=== PATIENT | male | born 1935 | race Caucasian/White ===

== ENCOUNTER 2018-02-10 13:58 | Emergency (ER) | payer MEDICARE, SELFPAY ==
[2018-02-10 13:59] VITALS: BP 134/101; PULSE 68; RESP 18; TEMP 36.6; O2SAT 97; BMI 21.4
[2018-02-10 14:18] VITALS: BP 170/95; PULSE 64; RESP 18
--- NOTE | 2018-02-10 14:43 | ED.VISSUMM ---
- ER Visit Summary Date of Service: 02/10/18 Chief Complaint: Urinary retention, catheter not draining History of Present Illness: The patient is a 82 M who states his catheter has not drained since last night. He has a suprapubic catheter in place due to chronic incontinence. It has been there for about a year and a half. It was changed about 2-1/2 weeks ago. He is having some suprapubic pain with this. Physical Examination: Vital signs reviewed. HEENT exam unremarkable. Heart is regular rate and rhythm. Lungs clear to auscultation. Abdomen is soft with suprapubic tenderness to palpation. The suprapubic catheter site appears clean and without erythema. The rest the exam is unremarkable Test Results: Urine culture is pending Emergency Department Course and Treatment: The patient's suprapubic was changed by myself. He had 1 L of urine returned with some sediment. Patient feels much better. I will start him on Bactrim and send a urine culture. He will follow-up with his primary care physician and urologist Treatment Plan: [] Disposition: Discharge Impression: Urinary retention, Tyler catheter change This note was generated with [employer] dictation software. It may contain incorrect words, spelling, and punctuation that were not noted in review of the chart prior to signing ED Disposition - Plan for ED Patient: Chief Complaint: Complaint Referrals: Marian Muller MD [Primary Care Provider] -
--- NOTE | 2018-02-10 14:45 | ED.DEP ---
ED Disposition - Plan for ED Patient: Disposition: Home or Assisted Living Chief Complaint: Complaint Instructions: ED Retention Urinary Male Prescriptions: Smz/Tmp Ds [Bactrim Ds] 1 tab PO BID #6 tab Referrals: Marian Muller MD [Primary Care Provider] -
[2018-02-10 14:50] VITALS: BP 150/76; PULSE 87; RESP 16
--- OUTSIDE RECORDS SUMMARY | 2018-02-10 15:00 | XMS RPT_ITS ---
:1935 Author Organization [facility] Care Team Providers Name Role Phone CARUSO, TOÑA (PA) Referring Unavailable CARUSO, TOÑA (PA) Referring Unavailable CARUSO, TOÑA (PA) Attending Unavailable CARUSO, TOÑA (PA) Referring Unavailable CARUSO, TOÑA (PA) Attending Unavailable CARUSO, TOÑA (PA) Referring Unavailable CARUSO, TOÑA (PA) Attending Unavailable CARUSO, TOÑA (PA) Referring Unavailable CARUSO, TOÑA (PA) Attending Unavailable CARUSO, TOÑA (PA) Referring Unavailable CARUSO, TOÑA (PA) Referring Unavailable Mraian Muller Primary Care Unavailable Yemi Zaldivar Attending Unavailable PROBLEMS PROBLEMS DATE TYPE CONDITION / CODE ATTENDING STATUS SOURCE 03/15/2017 Active Unknown / NA Active [facility] UNK(Unknown) [facility] PROCEDURES PROCEDURES No Procedure Records FoundRESULTS RESULTS DISCHARGE INSTRUCTION Observed: 02/10/2018 Status: F Source: [place] 2:46 PM [facility] REPOSITORY [facility] [address] [place], [place] [address]Gicyoipir Ljacdjzddgz01/17/18 1445#: [id number] Acct: [id number]: LIZY HERNÁNDEZ Rep #: [id number]: 1935 82 From: Yemi Zaldivar MDPCP: Marian Muller MD Status: PRE ERED Disposition- Plan for ED Patient:Disposition: Home or Assisted LivingChief Complaint: ComplaintInstructions: ED Retention Urinary MalePrescriptions:Smz/Tmp Ds [Bactrim Ds] 1 tab PO BID #6 tabReferrals:Marian Muller MD [Primary Care Provider] -What to do if you have ProblemsFor any increased pain, shortness of breath, bleeding, nausea or vomiting, chest pain, or anyunexpected problems, contact your Primary Care Provider. Call [facility] ([phone])or report to the closest Emergency Room.Call 911 if necessary.02/10/18 1446 <Electronically signed by Yemi Zaldivar MD>Date Yemi Zaldivar MDCosigner Signature (If Indicated): Date CC: Marian Muller MD EMERGENCY DEPARTMENT Observed: 02/10/2018 Status: F Source: [place] SUMMARY 2:45 PM [facility] REPOSITORY [facility] [address] [place], [place] [address]Wizbibesc Department Wjnkxvu90/17/18 1443MR#: [id number] Acct: [id number]: LIZY HERNÁNDEZ Rep #: [id number]: 1935 82 From: Yemi Zaldivar MDPCP: Marian Muller MD Status: PRE ER- ER Visit SummaryDate of Service: 02/10/18Chief Complaint : Urinary retention, catheter not drainingHistory of Present Illness: The patient is a 82 M who states his catheter has not drained sincelast night. He has a suprapubic catheter in place due to chronic incontinence. It has beenthere for about a year and a half. It was changed about 2-1/2 weeks ago. He is having somesuprapubic pain with this.Physical Examination: Vital signs reviewed. HEENT exam unremarkable. Heart is regular rateand rhythm. Lungs clear to auscultation. Abdomen is soft with suprapubic tenderness topalpation. The suprapubic catheter site appears clean and without erythema. The rest the examis unremarkableTest Results: Urine culture is [facility]Emer[facility] Course and Treatment: The patient's suprapubic was changed by myself. Hehad 1 L of urine returned with some sediment. Patient feels much better. I will start him onBactrim and send a urine culture. He will follow-up with his primary care physician andurologistTreatment Plan: []Disposition: DischargeImpression: Urinary retention, Zamudio catheter changeThis note was generated with Moc[employer] dictation software. It may contain incorrect words,spelling, and punctuation that were not noted in review of the chart prior to signingED Disposition- Plan for ED Patient:Chief Complaint: ComplaintReferrals:Marian Muller MD [Primary Care Provider] -What to do if you have ProblemsFor any increased pain, shortness of breath, bleeding, nausea or vomiting, chest pain, or anyunexpected problems, contact your Primary Care Provider. Call [facility] ([phone])or report to the closest Emergency Room.Call 911 if necessary.02/10/18 1445 <Electronically signed by Yemi Zaldivar MD>Date Yemi Zaldivar MDCosigner Signature (If Indicated): Date CC: Marian Muller MD PROGRESS Observed: 11/29/2017 Status: COMPLETED Source: [place] 4:20 PM [facility] REPOSITORY O ID: [id number]: Patti Hdezice: (none) Author Type: (none)Type: Progress NotesFiled: 11/29/2017 4:23 PMNote Text:Suprapubic catheter change performed as ordered.A 18 hong konger zamudio catheter was replaced using sterile technique withoutcomplications.Balloon inflated with 10cc of sterile saline.Patient tolerated procedure well.Irrigation preformed to insure proper placement done easily with goodreturn.Patient to follow up in 2 months. Patient to call in the interim with anyproblems or concerns.Patti Tim Ma CNNURSE Observed: 11/29/2017 Status: COMPLETED Source: [place] 3:00 PM [facility] REPOSITORY Nurse Visit (UROLWS) ---------LIZY HERNÁNDEZ ([id number]) 1935 MDate Time Provider Department11/29/17 3:00 PM NURSE UROL [facility] UROLWS During your visit today, we recorded the following information about you:Patti Tim Ma 11/29/2017 4:23 PM SignedSuprapubic catheter change performed as ordered.A 18 hong konger zamudio catheter was replaced using sterile technique withoutcomplications.Balloon inflated with 10cc of sterile saline.Patient tolerated procedure well.Irrigation preformed to insure proper placement done easily with good return.Patient to follow up in 2 months. Patient to call in the interim with anyproblems or concerns.Patti Dean Provider: TOÑA CARUSO) [[id number]]Allergies As of Date: 2017(No Known Allergies)Date Reviewed: 11/29/2017Reviewed by: Patti Tim Ma - Fully AssessedReason for Visit: Tube Change-suprapubic [824]Primary Visit Diagnosis:Urinary retention [R33.9] Prescriptions as of 11/29/2017 Sig: URINARY BAG Leg bag to use with SP tube* MISCELLANEOUS MEDICAL SUPPLY * Daniela Louie Leg strap for * OXYCODONE- ACETAMINOPHEN 7.5 M* Take 1 tablet by mouth every * SULFAMETHOXAZOLE 800 MG-TRIME* Take 1 tablet by mouth twice *Problem List As Of Date 11/29/2017 Noted Resolved Retention of urine [R33.9] INVALID FOR* Benign nodular prostatic hyperplasia with lower*INVALID FOR* Renal failure [N19] INVALID FOR* Abnormal prostate exam [R39.89] INVALID FOR* 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 The area was prepped with betadine, and a new 18 Fr Zamudio wasinserted through the stoma site into the bladder. The balloon was inflatedwith 10 cc's of sterile saline. The catheter irrigated with 30ml sterilesaline with good return. LUIS DANIEL Urias in office for tube change.The pt tolerated the procedure well without complications. Follow up asdiscussed with SHYLA Black MA PROGRESS Observed: 08/09/2017 Status: COMPLETED Source: [place] 3:51 PM [facility] HNO ID: [id number]: Patti Shah: (none) Author Type: (none)Type: Progress NotesFiled: 09/06/2017 6:47 PMNote Text:Suprapubic catheter change performed as ordered.A 18 Greenlandic latex zamudio catheter was replaced using sterile techniquewithout complications.Balloon inflated with 10cc of sterile saline.Patient tolerated procedure well.Irrigation preformed to insure proper placement with 60ml sterile salinewith good return.Patient to follow up in 8 weeks. Patient to call in the interim with anyproblems or concerns.Toña Caruso MPAS, [place], SHYLA CNOV Observed: 08/09/2017 Status: COMPLETED Source: [place] 3:30 PM [facility] REPOSITORY Office Visit (UROLWS) ---------LIZY HERNÁNDEZ ([id number]) 1935 MDate Time Provider Ynzkhrmjxf87/14/17 3:30 PM TOÑA CARUSO) UROLWS During your visit today, we recorded the following information about you:Patti Tim Ma 08/09/2017 3:52 PM SignedSuprapubic catheter change performed as ordered.A 18 Greenlandic latex zamudio catheter was replaced using sterile technique withoutcomplications.Balloon inflated with 10cc of sterile saline.Patient tolerated procedure well.Irrigation preformed to insure proper placement with 60ml sterile saline withgood return.Patient to follow up in 8 weeks. Patient to call in the interim with anyproblems or concerns.STEPAN Black, [place], PA-CReferring Provider: TOÑA CARUSO) [[id number]]Allergies As of Date: 08/09/2017(No Known Allergies)Date Reviewed: Reviewed by: Patti Tim Ma - Fully AssessedReason for Visit: sp tube change [Other] yearly check [Other]Primary Visit Diagnosis:Urinary retention [R33.9]Order(s):SUPRAPUBIC TUBE CHANGE [9602213] Order #: [id number] as of 08/09/2017 Sig: URINARY BAG Leg bag to use with SP tube* MISCELLANEOUS MEDICAL SUPPLY * Daniela Louie Leg strap for * OXYCODONE-ACETAMINOPHEN 7.5 M* Take 1 tablet by mouth every * SULFAMETHOXAZOLE 800 MG-TRIME* Take 1 tablet by mouth twice *Problem List As Of Date 08/09/2017 Noted Resolved Retention of urine [R33.9] INVALID FOR* Benign nodular prostatic hyperplasia with lower*INVALID FOR* Renal failure [N19] INVALID FOR* Abnormal prostate exam [R39.89] INVALID FOR* 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] INVALID FOR* Pain of male genitalia [N50.89] INVALID FOR* Anemia [D64.9] INVALID FOR* CKD (chronic kidney disease) [N18.9] INVALID FOR* Status:Closed by TOÑA LARA on 09/06/17 PROGRESS Observed: 06/14/2017 Status: COMPLETED Source: [place] 4:24 PM [facility] [place] REPOSITORY HNO ID: [id number]: Nathan GARCIAervice: (none) Author Type: (none)Type: Progress NotesFiled: 06/14/2017 4:24 PMNote Text:Suprapubic catheter change performed as ordered.A 18 hong konger zamudio catheter was replaced using sterile technique withoutcomplications.Balloon inflated with 10cc of sterile saline.Patient tolerated procedure well.Irrigation preformed to insure proper placement done without complicationwith good return.?Patient to follow up in 6- 8 weeks. Patient to call in the interim withany problems or concerns CNOV Observed: 06/14/2017 Status: COMPLETED Source: [place] 4:00 PM [facility] REPOSITORY Office Visit (UROLWS) ---------LIZY HERNÁNDEZ ([id number]) 1935 [facility] Wfwakcunbo29/19/17 4:00 PM TOÑA CARUSO) UROLWS During your visit today, we recorded the following information about you:Nathan Keith LPN 06/14/2017 4:24 PM SignedSuprapubic catheter change performed as ordered.A 18 hong konger zamudio catheter was replaced using sterile technique withoutcomplications.Balloon inflated with 10cc of sterile saline.Patient tolerated procedure well.Irrigation preformed to insure proper placement done without complication withgood return.?Patient to follow up in 6-8 weeks. Patient to call in the interim with anyproblems or concernsJokristin Keith LPN 06/14/2017 4:24 PM SignedSuprapubic catheter change performed as ordered.A 18 hong konger zamudio catheter was replaced using sterile technique withoutcomplications.Balloon inflated with 10cc of sterile saline.Patient tolerated procedure well.Irrigation preformed to insure proper placement done without complication withgood return.?Patient to follow up in 6-8 weeks. Patient to call in the interim with anyproblems or concernsReferring Provider: TOÑA CARUSO) [[id number]]Allergies As of Date: 06/14/2017(No Known Allergies)Date Reviewed: 04/26/2017Reviewed by: Patti Tim Ma - Fully AssessedReason for Visit: Nurse Visit [792] Cmt: s/p cath changePrimary Visit Diagnosis:Retention of urine [R33.9]Prescriptions as of 06/14/2017 Sig: URINARY BAG Leg bag to use with SP tube* MISCELLANEOUS MEDICAL SUPPLY * Daniela Liban Leg strap for * OXYCODONE-ACETAMINOPHEN 7.5 M* Take 1 tablet by mouth every * SULFAMETHOXAZOLE 800 MG-TRIME* Take 1 tablet by mouth twice *Problem List As Of Date 06/14/2017 Noted Resolved Retention of urine [R33.9] INVALID FOR* Benign nodular prostatic hyperplasia with lower*INVALID FOR* Renal failure [N19] INVALID FOR* Abnormal prostate exam [R39.89] INVALID FOR* 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 Patient to call in the interim withany problems or concernsEncounter Number: [id number] Status:Closed by NATHAN KEITH LPN on 06/14/17 PROGRESS Observed: 04/26/2017 Status: COMPLETED Source: [place] 4:23 PM [facility] REPOSITORY [facility] ID: [id number]: Patti Tim MaService: (none) Author Type: (none)Type: Progress NotesFiled: 04/26/2017 4:26 PMNote Text:Suprapubic catheter change performed as ordered.A 18 hong konger zamudio catheter was replaced using sterile technique withoutcomplications.Balloon inflated with 10cc of sterile saline.Patient tolerated procedure well.Irrigation preformed to insure proper placement done without complicationwith good return.Patient to follow up in 6-8 weeks. Patient to call in the interim withany problems or concerns.Patti Tim Ma CNNURSE Observed: 04/26/2017 Status: COMPLETED Source: [place] 4:00 PM [facility] REPOSITORY Nurse Visit (UROLWS) ---------LIZY HERNÁNDEZ ([id number]) 1935 MDate Time Provider Department04/26/17 4:00 PM NURSE UROL [facility] UROLWS During your visit today, we recorded the following information about you:Patti Tim Ma 04/26/2017 4:26 PM SignedSuprapubic catheter change performed as ordered.A 18 hong konger zamudio catheter was replaced using sterile technique withoutcomplications.Balloon inflated with 10cc of sterile saline.Patient tolerated procedure well.Irrigation preformed to insure proper placement done without complication withgood return.Patient to follow up in 6-8 weeks. Patient to call in the interim with anyproblems or concerns.Patti Greyefai Provider: TOÑA CARUSO) [[id number]] Allergies As of Date: 04/26/2017(No Known Allergies)Date Reviewed: 04/26/2017Reviewed by: Patti Tim Ma - Fully AssessedReason for Visit: Nurse Visit [792] Cmt: tube changePrimary Visit Diagnosis:Retention of urine [R33.9]Prescriptions as of 04/26/2017 Sig: URINARY BAG Leg bag to use with SP tube* MISCELLANEOUS MEDICAL SUPPLY * Daniela Louie Leg strap for * OXYCODONE-ACETAMINOPHEN 7.5 M* Take 1 tablet by mouth every * SULFAMETHOXAZOLE 800 MG-TRIME* Take 1 tablet by mouth twice *Problem List As Of Date 04/26/2017 Noted Resolved Retention of urine [R33.9] INVALID FOR* Benign nodular prostatic hyperplasia with lower*INVALID FOR* Renal failure [N19] INVALID FOR* Abnormal prostate exam [R39.89] INVALID FOR* 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] INVALID FOR* Pain of male genitalia [N50.89] INVALID FOR* Anemia [D64.9] INVALID FOR* CKD (chronic kidney disease) [N18.9] INVALID FOR* Status:Closed by PATTI TIM MA on 04/26/17 PROGRESS Observed: 03/15/2017 Status: COMPLETED Source: [place] 4:23 PM [facility] HNO ID: [id number]: Patti Tim MaService: (none) Author Type: (none)Type: Progress NotesFiled: 03/15/2017 4:25 PMNote Text:Suprapubic catheter change performed as ordered.A 18 hong konger zamudio catheter was replaced using sterile technique withoutcomplications.Balloon inflated with 30cc of sterile saline.Patient tolerated procedure well.Irrigation preformed to insure proper placement irrigated easily with goodreturn.Patient to follow up in 6-8 weeks. Patient to call in the interim withany problems or concerns.Patti Tim Ma CNNURSE Observed: 03/15/2017 Status: COMPLETED Source: [place] 4:00 PM [facility] REPOSITORY Nurse Visit (UROLWS) ---------LIZY HERNÁNDEZ ([id number]) 1935 [facility] Department03/15/17 4:00 PM NURSE UROL [facility] UROLWS During your visit today, we recorded the following information about you:Patti Tim Ma 03/15/2017 4:25 PM SignedSuprapubic catheter change performed as ordered.A 18 hong konger zamudio catheter was replaced using sterile technique withoutcomplications.Balloon inflated with 30cc of sterile saline.Patient tolerated procedure well.Irrigation preformed to insure proper placement irrigated easily with goodreturn.Patient to follow up in 6-8 weeks. Patient to call in the interim with anyproblems or concerns.Patti Dean Provider: TOÑA CARUSO) [[id number]] Allergies As of Date: 03/15/2017(No Known Allergies)Date Reviewed: 03/15/2017Reviewed by: Patti Tim Ma - Fully AssessedReason for Visit: Nurse Visit [792] Cmt: tube changePrimary Visit Diagnosis:Retention of urine [R33.9]Prescriptions as of 03/15/2017 Sig: URINARY BAG Leg bag to use with SP tube* MISCELLANEOUS MEDICAL SUPPLY * Daniela Louie Leg strap for * OXYCODONE-ACETAMINOPHEN 7.5 M* Take 1 tablet by mouth every * SULFAMETHOXAZOLE 800 MG-TRIME* Take 1 tablet by mouth twice *Problem List As Of Date 03/15/2017 Noted Resolved Retention of urine [R33.9] INVALID FOR* Benign nodular prostatic hyperplasia with lower*INVALID FOR* Renal failure [N19] INVALID FOR* Abnormal prostate exam [R39.89] INVALID FOR* 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] INVALID FOR* Pain of male genitalia [N50.89] INVALID FOR* Anemia [D64.9] INVALID FOR* CKD (chronic kidney disease) [N18.9] INVALID FOR* Status:Closed by PATTI TIM MA on 03/15/17 ALLERGIES ALLERGIES DATE TYPE / CODE NAME / CODE REACTION SEVERITY SOURCE 02/10/2018 Drug No Known Unknown [facility] Allergy/416 Allergies/X33999 Hospital 535006(SNOM 0388(RXNORM) Repository ED CT) Drug NO KNOWN [facility] Class/79537 ALLERGIES [place] 1003(SNOMED Repository CT) ENCOUNTERS ENCOUNTERS ADMIT/DISCHARGE ACCOUNT ADMITTING ENCOUNTER LOCATION SOURCE NUMBER CLASS 02/10/2018 [id number] Emergency [facility] ing:ED Repository 01/24/2018/01/25/20 [id number] Ambulatory [address] [place] Repository 11/29/2017/12/01/19 [id number] Ambulatory [address] [place] Repository 10/04/2017/10/04/19 [id number] Ambulatory [address] [place] Rep[place] 08/09/2017/09/07/19 [id number] Ambulatory [address] [place] Rep[place] 06/14/2017/06/19/20 [id number] Ambulatory [address] Repository 04/26/2017/04/26/20 [id number] Ambulatory [address] Repository 03/15/2017/03/15/20 [id number] Ambulatory [address] Repository PAYERS PAYERS ENCOUNTER GUARANTOR PAYER SUBSCRIBER SOURCE 02/10/2018 Lizy Hernández7834 Primary Lizy Esteban: Elsie Skaggs Insurance:MEDICARE [id number] [address]Sja: Number: Repository [id number] (HP) Date:2018-02-10 02/10/2018 Secondary NOT GIVENUNK Elsie Insurance:SELF PAY [facility] Number: Effective Repository Date:2018-02-10
[2018-02-10] MEDS: Smz/Tmp Ds Tablet 1 TABLET PO (15:06)
== END 2018-02-10 15:08 | disposition home or self-care (01) ==
LOC: ED 14:59
PROVIDERS: Emergency Provider Emergency Medicine; Family Provider Internal Medicine; PCP Internal Medicine
DX: R33.9 Retention of urine, unspecified (principal); Z46.6 Encounter for fitting and adjustment of urinary device
CPT/HCPCS: 87077; 87086; 87088; 87186; 99282

== ENCOUNTER 2018-05-05 08:05 | Emergency (ER) | payer MEDICARE, SELFPAY ==
[2018-05-05 08:05] VITALS: BP 164/79; PULSE 63; RESP 18; TEMP 36.4; O2SAT 99; BMI 20.9
--- NOTE | 2018-05-05 08:37 | ED.VISSUMM ---
- ER Visit Summary Date of Service: 05/05/18 Chief Complaint: Catheter not draining History of Present Illness: The patient is a 82 M with a Tyler catheter that is not working. He has a suprapubic catheter that was initially placed about 2 years ago. His catheter was replaced about 4 weeks ago. Since about midnight, the catheter was not draining. He reports pain to his lower abdomen. No fevers or other symptoms. Previously he has been doing well. Physical Examination: Afebrile and vital signs unremarkable. Patient appears uncomfortable but not toxic or in distress. Suprapubic catheter fistula appears clean, dry, intact. No bleeding or drainage. Surrounding skin appears normal. Patient has tenderness to his lower abdomen. Test Results: Emergency Department Course and Treatment: Suprapubic catheter was replaced by me. He tolerated this well. He had good clear, yellow, urine drainage. Resolution of his pain and discomfort. Patient was advised to follow-up with his urologist as planned in the next couple weeks. Return sooner for any new or worsening issues. Treatment Plan: As above Disposition: Discharged Impression: 1. Tyler catheter care This note was generated with [employer] software. It may contain incorrect words, spelling, and punctuation that were not noted in review of the chart prior to signing ED Disposition - Plan for ED Patient: Chief Complaint: Tyler C/O Referrals: Marian Muller MD [Primary Care Provider] -
--- NOTE | 2018-05-05 08:39 | ED.DEP ---
ED Disposition - Plan for ED Patient: Chief Complaint: Tyler C/O Instructions: Discharge Instructions: Caring for Your Suprapubic Catheter Additional Instructions: Follow up with your doctor as planned.
[2018-05-05 09:22] VITALS: RESP 16
== END 2018-05-05 09:23 | disposition home or self-care (01) ==
LOC: ED 09:02
PROVIDERS: Emergency Provider Emergency Medicine; Family Provider Internal Medicine; PCP Internal Medicine
DX: Z46.6 Encounter for fitting and adjustment of urinary device (principal); R10.30 Lower abdominal pain, unspecified
CPT/HCPCS: 99282

== ENCOUNTER 2020-12-06 13:43 | Emergency (ER) | payer MEDICARE, SELFPAY ==
[2020-12-06 13:44] VITALS: BP 175/116; PULSE 71; RESP 18; TEMP 36.7; O2SAT 96; BMI 21.6
--- NOTE | 2020-12-06 15:05 | ED.VISSUMM ---
- ER Visit Summary Date of Service: 12/06/20 Chief Complaint: Suprapubic catheter clogged History of Present Illness: The patient is a 85 M presenting with no urine output from his suprapubic catheter since 6 AM. He has had a suprapubic catheter in place for the past 4 years. Normally this is changed every 8 weeks. Today it became clogged and has not drained in the last several hours. They called his urologist office and he is not in today and they were advised to come to the ED. Physical Examination: Vitals are stable. Patient is afebrile. Alert no acute distress. HEENT exam is unremarkable. Neck is supple. Lungs are clear and equal bilaterally. Heart is regular rate and rhythm. Abdomen is soft suprapubic tenderness with suprapubic catheter. Extremities are unremarkable. Skin is warm and dry. No focal neurologic deficit. Remainder of exam is unremarkable. Emergency Department Course and Treatment: Suprapubic catheter was changed and urine was drained. Initially only a 12 Moroccan catheter was available. We did later find an 18 Moroccan which is the same size as his previous suprapubic catheter. Suprapubic catheter was changed to 18 portuguese catheter. We do not have a nonlatex catheter available. Family states he has had a nonlatex catheter in for several years. He has had a rash on his leg that may be due to latex allergy but developed no other reactions. He has never had shortness of breath, difficulty breathing or difficulty swallowing. They were able to get an appointment with his urologist tomorrow and will have this changed to nonlatex tomorrow. Urine appears cloudy. Urine culture was sent. Patient was given Keflex. Family is agreeable with this plan. Disposition: Discharge Impression: Suprapubic catheter change This note was generated with Spot[employer] dictation software. It may contain incorrect words, spelling, and punctuation that were not noted in review of the chart prior to signing ED Disposition - Plan for ED Patient: Disposition: Home or Assisted Living Instructions: ED Tyler Catheter, Care Prescriptions: Cephalexin [Keflex] 500 mg PO Q12 #14 capsule Prescription Printed Referrals: Marian Muller MD [Primary Care Provider] -
--- NOTE | 2020-12-06 16:33 | ED.DEP ---
ED Disposition - Plan for ED Patient: Instructions: ED Tyler Catheter, Care Prescriptions: Cephalexin [Keflex] 500 mg PO Q12 #14 capsule Prescription Printed Referrals: Marian Muller MD [Primary Care Provider] -
[2020-12-06] MEDS: Cephalexin 250 MG Capsule 500 MG PO (16:50)
[2020-12-06 16:51] VITALS: BP 170/90; PULSE 64; RESP 16; O2SAT 96
== END 2020-12-06 16:55 | disposition home or self-care (01) ==
LOC: ED 15:13
PROVIDERS: Emergency Provider Emergency Medicine; PCP Internal Medicine
DX: T83.198A Other mechanical complication of other urinary devices and implants, initial encounter (principal); R82.90 Unspecified abnormal findings in urine
CPT/HCPCS: 87077; 87086; 87088; 87186; 99283; A4216

== ENCOUNTER 2020-12-08 14:03 | Emergency (ER) | payer MEDICARE, SELFPAY ==
[2020-12-08 14:04] VITALS: BP 155/87; PULSE 73; RESP 15; TEMP 36; O2SAT 98; BMI 20.5
--- NOTE | 2020-12-08 14:39 | ED.VIS.GEN ---
History of Present Illness Chief Complaint: Tyler C/O Informant: Patient, Family Narrative: 85-year-old male with past medical history of bladder dysfunction and a chronic suprapubic catheter presents with clogged catheter. States he had a replaced yesterday as an outpatient. States that there is sediment today and it will not drain appropriately. Denies any nausea, vomiting, fever, chills. Past Medical History - Allergies and Home Meds Allergies/Adverse Reactions: Allergies latex Allergy (Verified 12/08/20 14:04) Rash Primary Care Physician: Marian Muller MD [Primary Care Provider] - Prior records reviewed: Yes Past Medical History: - - bladder dysfunction Surgical History: - - suprapubic catheter Lives: Spouse/ Significant Other Smoking Status: Never smoker Alcohol: None Drugs: None Review of Systems General: Denies: Chills, Fever, Sweats Eyes: Denies: Visual changes - bilaterally, Diplopia ENT: Denies: Rhinorrhea, Sore throat Cardiovascular: Denies: Chest pain, Palpitations Respiratory: Denies: Dyspnea, Cough, Dyspnea on exertion Gastrointestinal: Denies: Abdominal pain, Nausea, Vomiting, Diarrhea, Melena, Hematochezia Genitourinary: Denies: Dysuria, Hematuria, Frequency Musculoskeletal: Denies: Back pain, Extremity Pain Skin: Denies: Rash, Wounds Neurological: Denies: Headache, Weakness, Numbness Physical Exam Vital Signs/Narrative: Vital Signs Temp Pulse Resp BP Pulse Ox 12/08/20 14:04 96.8 F L 73 15 155/87 H 98 General: Well nourished, Well developed, No Acute Distress Head: Normocephalic, Atraumatic Eyes: Perrl, EOMI ENT: Moist mucous membranes, No rhinorrhea Neck: Supple, Nontender Cardiovascular: Regular rate, Regular rhythm, No murmurs Respiratory: No distress, CTA bilaterally, Chest nontender Abdomen: Soft, Nontender, Nondistended, Normal bowel sounds Back: Nontender, Normal Inspection Extremities: Nontender, No edema Skin: Normal color, No rash Neurological: Alert, Oriented x3, Cranial nerves II-XII grossly intact, Normal Strength, Normal Sensation Psychological: Normal affect, Normal Mood Diagnostic/Tx/Re-eval - Medical Decision Making Patient appears well and nontoxic. No surrounding cellulitis of the suprapubic catheter. It was flushed easily. Bladder scan shows no retention. Patient feeling improved. Will be asked to follow-up with urologist. Stable at time of discharge. Impression: 1. Suprapubic catheter dysfunction ED Disposition - Plan for ED Patient: Disposition: Home or Assisted Living Instructions: Caring for Your Suprapubic Catheter Referrals: Marian Muller MD [Primary Care Provider] - 2 Days
[2020-12-08 15:13] VITALS: BP 134/68; PULSE 71; RESP 15; O2SAT 98
== END 2020-12-08 15:14 | disposition home or self-care (01) ==
PROVIDERS: Emergency Provider Emergency Medicine; PCP Internal Medicine
DX: T83.198A Other mechanical complication of other urinary devices and implants, initial encounter (principal); N31.9 Neuromuscular dysfunction of bladder, unspecified
CPT/HCPCS: 99282

== ENCOUNTER 2022-10-12 14:57 | Emergency (ER) | payer MEDICARE, SELFPAY ==
[2022-10-12 14:58] VITALS: BP 222/114; PULSE 86; RESP 16; TEMP 2.7; TEMP 36.8; O2SAT 94; BMI 23.9
--- NOTE | 2022-10-12 16:32 | EDS_ITS ---
HPI History of Present Illness Chief Complaint: Complaint Detail of Chief Complaint: Suprapubic catheter not draining. Suprapubic abdominal pain and distention Informant: patient and spouse/S.O. Pain Onset: Today Timing: Continuous Current Severity: Moderate Maximum Severity: Moderate Narrative Narrative: 87-year-old male has history of urinary retention with suprapubic catheter its been in around 6 years. The most recent catheter has been in 3 to 4 weeks. He has not changed every 7 weeks. The 22 Georgian catheter. Today noticed some blood in the catheter is not draining. He is complaining of suprapubic discomfort. Denies any fever or chills. No recent illness. He is not on any blood thinners. Prior similar symptoms: Yes Recent Illness/Hospitalization: No PFSH PFSH Medical History Suprapubic catheter Home Medications azithromycin 250 mg tablet (Zithromax Z-Rishabh) See Rx Instructions PO .COMPLEX #6 tabs 08/09/22 [Rx Last Taken Unknown] cefdinir 300 mg capsule 300 mg PO BID #10 caps 08/09/22 [Rx Last Taken Unknown] guaifenesin 400 mg tablet 400 mg PO TID PRN congestion #15 tabs 08/09/22 [Rx Last Taken Unknown] Allergy/AdvReac Type Severity Reaction Status Date / Time latex Allergy Rash Verified 10/12/22 14:58 Social History Smoking Status: Never smoker alcohol intake: never ROS ROS ED ROS Narrative Denies recent illness. Review of Systems ROS Unobtainable: Denies due to encephalopathy Constitutional Constitutional ED: Denies chills or fever(s) Eyes Eyes: Denies blurry vision ENT ENT ED: Denies ear pain Cardiovascular Cardiovascular: Denies chest pain Respiratory/Chest Respiratory/Chest: Denies cough or dyspnea Gastrointestinal Gastrointestinal: Denies abdominal pain Genitourinary Genitourinary ED: Reports hematuria; Denies dysuria Musculoskeletal Musculoskeletal: Denies arthralgias Integumentary Denies abscess Neurologic Neurologic: Denies headache(s) Psychiatric Psychiatric: Denies anxiety Endocrine Endocrinology: Denies polydipsia Hematologic/Lymphatic Hematologic/Lymphatic: Denies easy bleeding Allergic/Immunologic Allergic/Immunologic ED: Denies mouth swelling or tongue swelling EXAM Physical Exam Narrative Exam Narrative: 87-year-old male vital signs stable blood pressure elevated 222/114. Due to his urinary retention and distended bladder. H EENT exam unremarkable. Lungs clear. Heart regular rhythm no murmur. Abdomen suprapubic distention and fullness from an obstructed suprapubic catheter. Is a 22 Georgian in. It was removed with a Large gush of bloody urine from the bladder ostomy site. A 22 Georgian Tyler was then placed the balloon was inflated. Grossly bloody urine is coming out. Moving all 4 extremities. Calves are nontender without edema or cords. Neurologically patient is awake and alert. No focal motor deficits. Const Vital Signs: 10/12/22 14:58 10/12/22 17:01 Temperature 36.8 F L Temperature Source Oral Pulse Rate 86 61 Respiratory Rate 16 18 Blood Pressure 222/114 H 159/80 H Blood Pressure Mean 150 106 Pulse Ox 94 94 Oxygen Delivery Method Room Air Room Air Positive well nourished and well developed; Negative for obese, cachectic, contractures or unkempt General Appearance ED: well developed and NAD; Negative for unkempt, cachectic, contractures or pallor Nutritional Appearance: Negative for cachectic or obese HEENT Reports moist mucous membranes; Denies dry mucous membranes normocephalic and atraumatic; Negative for trauma or tenderness Mouth ED: No dry mucous membranes Mouth: No dry mucous membranes Eyes PERRL and EOMs intact bilaterally General Eye ED: Negative for pale conjunctiva or scleral icterus Neck no lymphadenopathy, supple and no JVD General: Negative for tenderness Resp normal respiratory effort and clear to auscultation bilaterally Effort and Inspection: Negative for retractions Auscultation: Negative for rales, rhonchi or wheezes Cardio regular rate, regular rhythm, S1 normal heart sound, S2 normal heart sound and no murmurs GI no masses; Negative for non-tender or non-distended Inspection: abdominal distention Auscultation: normoactive bowel sounds Palpation: soft and tender; Negative for guarding Back/Spine no CVA tenderness Extremity normal to inspection General Extremety ED: Negative for edema or tenderness General Extremity: Negative for edema Neuro oriented x3, moves all extremities and no focal motor deficits Sensorium / Orientation: alert, oriented to person, oriented to place and oriented to time; Negative for orientation impaired, confused, lethargic or stuporous Motor Exam: strength 5/5 throughout Psych mental status grossly normal Appearance: Negative for unkempt Attitude: No agitated Mood & Affect: Negative for depressed, anxious or tearful Thought Content: normal thought content Skin General Skin Exam: Negative for jaundice or pallor Lesions: no lesions Rashes: no rashes MDM MDM MDM Narrative Medical decision making narrative: 87-year-old male with chronic indwelling Tyler catheter from what sounds like neurogenic bladder or urinary obstruction. That surgery was done 6 to 7 years ago. The current catheter has been in 3 to 4 weeks. Catheter was already removed there was a large lopez of a large amount of bloody urine. And a 22 Georgian Tyler was placed. Bloody urine is coming out of the Tyler. Screening labs and UA will be obtained. Repeat exam at 8:13 PM patient doing well. Abdomen is benign. Nurse irrigated the suprapubic catheter he had a few clots come out currently its clearing up. I discussed all lab results with the patient. Given his a suprapubic catheter and there is no nitrates and no bacteria I will wait till the culture results to determine if he needs to be on any antibiotics. I explained both he and his these are always contaminated due to the nature of his suprapubic catheter. He will follow-up with his urologist. Lab Data Attestation: I reviewed the patient's lab results. Lab results narrative: CBC normal. White count of 10. H&H 14 and 42. Platelets 194. Electrolytes unremarkable gap of 7. BUN of 32 creatinine 1.7. Urine shows 250 occult blood. Greater than 100 red cells 50-100 white cells. No bacteria no nitrates. This is a suprapubic catheter is going to be chronically contaminated. I will send a urine culture before treated. Patient has no labs available for comparison so I do not know what his normal BUN and creatinine are. Labs: Laboratory Results - last 24 hr 10/12/22 10/12/22 10/12/22 17:00 17:00 17:00 WBC 10.4 RBC 4.55 L Hgb 14.2 Hct 42.5 MCV 93.4 MCH 31.2 MCHC 33.4 RDW Std Deviation 44.0 H RDW Coeff of Cholo 12.9 Plt Count 194 MPV 10.3 Immature Gran % (Auto) 0.400 Neut % (Auto) 89.9 H Lymph % (Auto) 4.6 L [place] % (Auto) 4.8 Eos % (Auto) 0.1 Baso % (Auto) 0.2 Absolute Neuts (auto) 9.4 H Absolute Lymphs (auto) 0.48 L Nucleated RBC % 0 Differential Comment SCANNED Sodium 140 Potassium 3.8 Chloride 106 Carbon Dioxide 27.0 Anion Gap 7 BUN 32 H Creatinine 1.70 H Estim Creat Clear Calc 24.64 Est GFR (MDRD) Af Amer 49 L Est GFR (MDRD) Non-Af 41 L BUN/Creatinine Ratio 18.8 Glucose 150 H Calcium 9.4 Urine Color Red Urine Clarity Cloudy Urine pH 8.0 Ur Specific Maynard 1.010 Urine Protein 100 H Urine Glucose (UA) Normal Urine Ketones 5 H Urine Occult Blood 250 H Urine Nitrite Negative Urine Bilirubin Negative Urine Urobilinogen Normal Ur Leukocyte Esterase 500 H Urine RBC > 100 SEEN Urine WBC 50-100 SEEN Ur Squamous Epith Cells 0 SEEN Urine Bacteria 0 SEEN Urine Mucus 0 SEEN Discharge Plan Triage Chief Complaint: Complaint Other Complaint: Abd Pain ED Provider: Luke Dunn Dx/Rx/DC Orders Clinical Impression: Complication, blocked suprapubic catheter, Hematuria Instructions: ED Hematuria Prescriptions: No Action azithromycin [Zithromax Z-Rishabh] 250 mg tablet See Rx Instructions PO .COMPLEX Qty: 6 0RF Rx Instructions: take 500 mg today (day 1), then 250 mg for 4 days (days 2-5) PO guaifenesin 400 mg tablet 400 mg PO TID PRN (Reason: congestion) Qty: 15 0RF cefdinir 300 mg capsule 300 mg PO BID Qty: 10 0RF Primary Care Provider: Marian Muller Referrals: Marian Muller MD [Primary Care Provider] - Activity Restrictions/Additional Instructions: Plenty of fluids to help pass any blood in your urine. Call and follow-up with your [facility] urologist as soon as possible. Call their office tomorrow. Your catheter was obstructed due to blood. We do not have a specific cause for the blood. They may want to go in your bladder and look and see with the scope. I did send a urine culture if that comes back positive we may need to put you on antibiotics. Return if your catheter stops draining. Disposition Disposition: Home, Self Care
[2022-10-12 17:01] VITALS: BP 159/80; PULSE 61; RESP 18; O2SAT 94
[2022-10-12 17:02] LABS: Bacteria 0 SEEN /hpf (None Seen); Mucous, Urine 0 SEEN /hpf (<or=2+); Squamous Epithelial Cells - UA 0 SEEN /hpf (0-5)
[2022-10-12 17:03] LABS: Absolute Lymphocyte Count 0.48 X10^3/uL (0.83-4.51); Absolute Neutrophil Count 9.4 X10^3/uL (2.0-7.7); Basophil# 0.02 X10^3/uL; Basophil% 0.2 % (0-1); Color, Urine Red (Yellow); Eosinophil# 0.01 X10^3/uL; Eosinophils% 0.1 % (0-5); Glucose, Dipstick Normal (Normal); Hematocrit 42.5 % (40-54); Hemoglobin 14.2 g/dL (13.0-16.5); Ketone-Dipstick 5 mg/dl (Negative); Leukocyte Esterase-Dipstick 500 /ul (Negative); Lymphocyte # 0.48 X10^3/ul (0.83-4.51); Lymphocyte % 4.6 % (19-41); Mean Corp Hgb Conc 33.4 g/dL (32-36); Mean Corpuscular Hgb 31.2 pg (27.0-32.0); Mean Corpuscular Volume 93.4 fL (80-94); Mean Platelet Vol. 10.3 fl (6.2-12.0); Monocyte% 4.8 % (0-10); NRBC Flagged by Analyzer 0 % (0-5); Neutrophil # 9.38 X10^3/uL (2.7-7.7); Neutrophil % 89.9 % (47-70); Nitrite-Dipstick Negative (Negative); Occult Blood-Urine 250 /ul (Negative); POSITIVE DIFFERENTIAL YES; Platelet Count 194 K/mm3 (150-450); Protein-Dipstick 100 mg/dl (Negative); RBC Distribution Width CV 12.9 % (11.6-14.6); Red Blood Count 4.55 M/mm3 (4.6-6.2); Urine Bilirubin Dipstick Negative (Negative); Urine Clarity Cloudy (Clear); Urine Urobilinogen Normal (Normal); White Blood Count 10.4 K/mm3 (4.4-11.0)
[2022-10-12 17:16] LABS: Anion Gap 7 (5-15); BUN 32 mg/dL (7-18); BUN/Creat Ratio 18.8 RATIO (10-20); Calcium,Total 9.4 mg/dL (8.5-10.1); Chloride 106 mmol/L (98-107); EST Glomerular Filtration Rate 41 mL/min (>60); Est Glom Filt Rate - Afr Amer 49 mL/min (>60); Estimated Creatinine Clearance 24.64 ml/min; Glucose 150 mg/dL (74-106); Potassium 3.8 mmol/L (3.5-5.1); Sodium Level 140 mmol/L (136-145)
[2022-10-12 17:17] LABS: Red Blood Cells-Urine > 100 SEEN /hpf (0-5); White Blood Cells 50-100 SEEN /hpf (0-5)
[2022-10-12 17:22] LABS: Differential Indicated SCAN CRITERIA MET
[2022-10-12 18:31] LABS: Differential Comment SCANNED
== END 2022-10-12 20:49 | disposition home or self-care (01) ==
PROVIDERS: Emergency Provider Emergency Medicine; PCP Internal Medicine; Visit Provider Emergency Medicine
DX: R31.9 Hematuria, unspecified (principal); T83.098A Other mechanical complication of other urinary catheter, initial encounter; R33.9 Retention of urine, unspecified; R10.2 Pelvic and perineal pain; R14.0 Abdominal distension (gaseous)
CPT/HCPCS: 51702; 80048; 81001; 85025; 99283; A4216

== ENCOUNTER 2022-10-26 05:22 | Emergency (ER) | payer MEDICARE, SELFPAY ==
[2022-10-26 05:24] VITALS: BP 179/128; PULSE 85; RESP 16; TEMP 36.1; O2SAT 95; BMI 21.2
--- NOTE | 2022-10-26 06:20 | EX.ED.DYSGE1 ---
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 He states the catheter is in place for multiple years and roughly 2 weeks ago he had to be seen to have it replaced as there was no draining through the tubing. Patient states has been doing well but noticed yesterday afternoon that the catheter started decreasing his drainage and that this morning there is no output of urine and he had increased abdominal pain concerning for obstruction. Secondary to this he was brought in for evaluation. [facility] Medical History Suprapubic catheter Home Medications NK 10/26/22 [History Last Taken Unknown] Allergy/AdvReac Type Severity Reaction Status Date / Time latex Allergy Rash Verified 10/26/22 05:28 Social History Smoking Status: Never smoker alcohol intake: never ROS ROS ED Constitutional Constitutional ED: Denies chills or fever(s) ENT ENT ED: Denies sore throat Cardiovascular Cardiovascular: Denies chest pain Respiratory/Chest Respiratory/Chest: Denies cough or dyspnea Gastrointestinal Gastrointestinal: Reports abdominal pain; Denies diarrhea, nausea or vomiting Genitourinary Genitourinary ED: Reports other Details: Positive anuria Musculoskeletal Musculoskeletal: Denies back pain or myalgias Integumentary Denies rash Neurologic Neurologic: Denies headache(s) Hematologic/Lymphatic Hematologic/Lymphatic: Denies easy bleeding or easy bruising EXAM Physical Exam Const Vital Signs: 10/26/22 05:24 Temperature 97.0 F L Temperature Source Temporal Pulse Rate 85 Respiratory Rate 16 Blood Pressure 179/128 H Blood Pressure Mean 145 Pulse Ox 95 Oxygen Delivery Method Room Air Positive well nourished and well developed General Appearance ED: well developed Eyes PERRL and EOMs intact bilaterally Neck supple Resp normal respiratory effort and clear to auscultation bilaterally Cardio regular rate and regular rhythm GI GI Narrative: Patient has distention/organomegaly in the lower mid/suprapubic abdominal region consistent with a distended bladder from urinary retention. There is pain with palpation over the site. Otherwise there is no abdominal pain with palpation or guarding or rigidity or pulsatile mass. Patient does have a suprapubic catheter inserted in the lower mid/suprapubic abdominal region and there are no surrounding changes of secondary infection to the soft tissue Auscultation: normoactive bowel sounds Palpation: soft Narrative: No testicular swelling or masses noted. No blood or discharge noted from the urethral meatus. No secondary changes in the lower region to suggest Felix's gangrene. Back/Spine no CVA tenderness Extremity normal to inspection Neuro oriented x3 and CN's II-XII intact bilaterally Sensorium / Orientation: alert Psych mental status grossly normal Skin no rashes or lesions noted MDM MDM MDM Narrative Medical decision making narrative: Patient presented to the ER hypertensive but otherwise with stable vitals. He reported been approximately 12 to 24 hours since the catheter was draining normally. On exam he has distention firmness and pain consistent with acute urinary retention. He did not have any soft tissue changes to suggest infection or necrotizing fasciitis/Felix's gangrene. At this time as he is afebrile and history is most consistent with acute retention I do not feel there is need for imaging or laboratory studies. Also as he reports has been 12 to 24 hours my concern for acute kidney injury is low and do not feel need to check a BUN or creatinine. The patient had his previous catheter removed and a new 22 Botswanan catheter was placed through the suprapubic opening. Upon placing the catheter there was a return of normal yellow urine with sediment which was most likely the cause of plugging of the catheter and his retention/obstruction. The patient drained roughly 1 L of urine and afterwards had a soft abdomen without organomegaly or tenderness. Therefore at this time is my concern for infection and acute kidney injury are low and he had resolution of symptoms with placement of a new catheter he is otherwise safe for discharge. Discharge Plan Triage Chief Complaint: Complaint ED Provider: Cb Pichardo Dx/Rx/DC Orders Clinical Impression: Acute on chronic urinary retention, Blocked suprapubic catheter Instructions: ED Tyler Catheter, Care, ED Urinary Retention, Male Prescriptions: No Action NK Primary Care Provider: Marian Muller Referrals: Marian Muller MD [Primary Care Provider] - Activity Restrictions/Additional Instructions: Please return to the ER should you have any further concerns or worsening of symptoms Disposition Disposition: Home, Self Care
[2022-10-26 06:44] VITALS: BP 158/60; PULSE 75; RESP 18
[2022-10-26 06:47] VITALS: RESP 18
== END 2022-10-26 08:05 | disposition home or self-care (01) ==
PROVIDERS: Emergency Provider Emergency Medicine; PCP Internal Medicine; Visit Provider Emergency Medicine
DX: T83.098A Other mechanical complication of other urinary catheter, initial encounter (principal); R33.9 Retention of urine, unspecified; I10 Essential (primary) hypertension; Y73.8 Miscellaneous gastroenterology and urology devices associated with adverse incidents, not elsewhere classified
CPT/HCPCS: 51705; 99284

== ENCOUNTER 2024-02-24 20:05 | Emergency (ER) | payer MEDICARE, SELFPAY ==
[2024-02-24 20:06] VITALS: BP 186/128; PULSE 73; RESP 18; TEMP 36.6; O2SAT 96
--- NOTE | 2024-02-24 20:40 | EX.ED.DYSGE1 ---
HPI History of Present Illness Chief Complaint: Tyler C/O Informant: patient Onset/Context/Timing Onset: Today Context: Sudden Onset Timing: Continuous Quality: Sharp Location: Suprapubic catheter site Worsened by: Nothing Relieved by: Irrigation Narrative Narrative: Patient presents with lower abdominal pain around his suprapubic catheter that began today. Patient states it began rather suddenly. Patient states that has been constant. Patient states it is sharp. Patient states it is mainly at the suprapubic catheter site. Patient states he was able to irrigate the catheter and it felt better after that. Patient states the pain then returned. Patient came to the emergency department for further evaluation of his catheter. Patient did note some blood in his urine. Patient denies any fevers or chills. Patient denies any nausea or vomiting. [facility] Medical History (Updated 02/24/24 @ 20:[address] Isaias Light DO) Hypertension Suprapubic catheter Home Medications ?Medication ?Instructions ?Recorded ?Last Taken ?Type NK 10/26/22 Unknown History Allergy/AdvReac Type Severity Reaction Status Date / Time latex Allergy Rash Verified 02/24/24 20:08 Surgical History (Updated 02/24/24 @ 20:[address] Isaias Light DO) History of suprapubic catheter Social History Smoking Status: Never smoker alcohol intake: never ROS ROS ED Constitutional Constitutional ED: Denies chills or fever(s) Eyes Eyes: Denies blurry vision or change in vision ENT ENT ED: Denies rhinorrhea or sore throat Cardiovascular Cardiovascular: Denies chest pain or palpitations Respiratory/Chest Respiratory/Chest: Denies cough or dyspnea Gastrointestinal Gastrointestinal: Denies nausea or vomiting Genitourinary Genitourinary ED: Denies dysuria or hematuria Musculoskeletal Musculoskeletal: Denies back pain or neck pain Integumentary Denies abscess or rash Neurologic Neurologic: Denies headache(s) or weakness Allergic/Immunologic Allergic/Immunologic ED: Denies mouth swelling or urticaria EXAM Physical Exam Const Vital Signs: 02/24/24 20:06 Temperature 97.9 F Temperature Source Temporal Pulse Rate 73 Respiratory Rate 18 Blood Pressure 186/128 H Blood Pressure Mean 147 Pulse Ox 96 Oxygen Delivery Method Room Air Positive well nourished and well developed General Appearance ED: well developed and NAD HEENT Reports moist mucous membranes Neck supple and no JVD Resp normal respiratory effort and clear to auscultation bilaterally Cardio regular rate and regular rhythm GI non-distended Palpation: soft and tender suprapubic (There is tenderness around the suprapubic catheter site. There is no discharge or drainage noted.) Neuro oriented x3, CN's II-XII intact bilaterally and no sensory deficits noted Sensorium / Orientation: alert Motor Exam: strength 5/5 throughout Psych mental status grossly normal MDM MDM MDM Narrative Medical decision making narrative: The suprapubic catheter was able to be adjusted. The balloon was inflated with 30 cc of saline. The catheter began draining yellow urine. Patient felt better after this. Patient was instructed to follow-up with his urologist in 3 to 5 days. Patient was instructed to return if worse in any way. Patient understood and was agreeable with the plan. All questions were answered. Discharge Plan Triage Chief Complaint: Tyler C/O ED Provider: Isaias Light Dx/Rx/DC Orders Clinical Impression: Suprapubic catheter dysfunction, Hypertension Instructions: Suprapubic Catheter Dc Prescriptions: No Action NK Primary Care Provider: Marian Muller Referrals: Marian Muller MD [Primary Care Provider] - 3-5 Days Activity Restrictions/Additional Instructions: Follow-up with your urologist this week for reevaluation. Print Language: Uzbek Disposition Disposition: Home, Self Care
[2024-02-24 20:42] VITALS: BMI 21.0
[2024-02-24 21:02] VITALS: BP 194/99; PULSE 65; RESP 18; TEMP 36.6; O2SAT 95
== END 2024-02-24 21:10 | disposition home or self-care (01) ==
LOC: ED 21:10
PROVIDERS: Emergency Provider Emergency Medicine; PCP Internal Medicine; Visit Provider Emergency Medicine
DX: T83.028A Displacement of other urinary catheter, initial encounter (principal); I10 Essential (primary) hypertension
CPT/HCPCS: 99282

== ENCOUNTER 2024-02-29 09:25 | Emergency (ER) | payer MEDICARE, SELFPAY ==
[2024-02-29 09:25] VITALS: BP 199/122; BP 201/122; PULSE 77; PULSE 80; RESP 14; TEMP 36.8; O2SAT 98; BMI 22.6
[2024-02-29 10:07] LABS: Mucous, Urine 0 SEEN /hpf (<or=2+); Squamous Epithelial Cells - UA 0 SEEN /hpf (0-5)
[2024-02-29 10:09] LABS: Color, Urine Red (Yellow); Glucose, Dipstick Normal (Normal); Ketone-Dipstick 5 mg/dl (Negative); Leukocyte Esterase-Dipstick 500 /ul (Negative); Nitrite-Dipstick Negative (Negative); Occult Blood-Urine 250 /ul (Negative); Protein-Dipstick 500 mg/dl (Negative); Urine Bilirubin Dipstick Negative (Negative); Urine Clarity Cloudy (Clear); Urine Urobilinogen Normal (Normal)
[2024-02-29 10:11] LABS: Absolute Lymphocyte Count 0.96 X10^3/uL (0.83-4.51); Absolute Neutrophil Count 3.8 X10^3/uL (2.0-7.7); Basophil# 0.02 X10^3/uL; Basophil% 0.4 % (0-1); Eosinophil# 0.03 X10^3/uL; Eosinophils% 0.6 % (0-5); Hematocrit 36.3 % (40-54); Lymphocyte # 0.96 X10^3/ul (0.83-4.51); Lymphocyte % 18.1 % (19-41); Mean Corp Hgb Conc 33.1 g/dL (32-36); Mean Corpuscular Hgb 30.1 pg (27.0-32.0); Mean Platelet Vol. 10.8 fl (6.2-12.0); Monocyte% 9.5 % (0-10); NRBC Flagged by Analyzer 0 % (0-5); Neutrophil # 3.77 X10^3/uL (2.7-7.7); Neutrophil % 71.2 % (47-70); Platelet Count 166 K/mm3 (150-450); RBC Distribution Width CV 13.3 % (11.6-14.6); RBC Distribution Width SD 44.1 fl (35.1-43.9); Red Blood Count 3.99 M/mm3 (4.6-6.2); White Blood Count 5.3 K/mm3 (4.4-11.0)
[2024-02-29 10:22] LABS: Anion Gap 7 (5-15); BUN 33 mg/dL (7-18); BUN/Creat Ratio 20.8 RATIO (10-20); Calcium,Total 9.1 mg/dL (8.5-10.1); Chloride 110 mmol/L (98-107); Creatinine, Serum 1.59 mg/dL (0.70-1.30); EST Glomerular Filtration Rate 44 mL/min (>60); Est Glom Filt Rate - Afr Amer 53 mL/min (>60); Estimated Creatinine Clearance 28.84 ml/min; Glucose 110 mg/dL (74-106); Potassium 3.4 mmol/L (3.5-5.1); Sodium Level 141 mmol/L (136-145)
[2024-02-29 10:35] LABS: Bacteria 1+ /hpf (None Seen); Red Blood Cells-Urine 50-100 SEEN /hpf (0-5); White Blood Cells 25-50 SEEN /hpf (0-5)
--- NOTE | 2024-02-29 10:39 | EDS_ITS ---
HPI History of Present Illness Chief Complaint: Tyler C/O Informant: patient and family Narrative Narrative: 88-year-old male presenting with hematuria, he has had suprapubic catheter for some time it was last changed about 2 weeks ago, follows with Dr. Zhou [facility]. He was seen here in the ER a week ago because he was having pain, and a little bit of hematuria. His catheter was fixed without being replaced, was draining yellow urine so he was not studied and did fine. He had some hematuria couple weeks ago, now this started again 2 or 3 days ago, he denies having any pain or lack of the flow. Has seen some small clots but no retention. He denies having any fevers or chills. No leakage around the catheter. PFSH PFSH Medical History Hypertension Suprapubic catheter Home Medications ?Medication ?Instructions ?Recorded ?Last Taken ?Type ciprofloxacin HCl 500 mg tablet 500 mg PO BID #14 TABLETS 02/29/24 Unknown Rx Allergy/AdvReac Type Severity Reaction Status Date / Time latex Allergy Rash Verified 02/29/24 09:27 Surgical History History of suprapubic catheter Social History Smoking Status: Never smoker alcohol intake: never ROS ROS ED Constitutional Constitutional ED: Denies chills or fever(s) Gastrointestinal Gastrointestinal: Denies abdominal pain, nausea or vomiting Genitourinary Genitourinary ED: Reports as per HPI and hematuria Musculoskeletal Musculoskeletal: Denies back pain or neck pain Neurologic Neurologic: Denies headache(s), paresthesias or weakness EXAM Physical Exam Const Vital Signs: 02/29/24 09:25 02/29/24 09:25 Temperature 98.3 F Temperature Source Temporal Pulse Rate 80 77 Respiratory Rate 14 14 Blood Pressure 199/122 H 201/122 H Blood Pressure Mean 147 148 Pulse Ox 98 98 Oxygen Delivery Method Room Air Room Air Positive well nourished and well developed General Appearance ED: well developed and NAD HEENT Reports moist mucous membranes GI non-tender and non-distended Auscultation: normoactive bowel sounds Palpation: soft no CVA tenderness Narrative: Suprapubic catheter in place site is benign with no leakage of blood or urine around it, there is gross hematuria without clots present in the catheter and the bag. Extremity normal to inspection Neuro oriented x3, CN's II-XII intact bilaterally, no focal motor deficits and no sensory deficits noted Psych mental status grossly normal Skin Rashes: no rashes MDM MDM MDM Narrative Medical decision making narrative: Study shows some chronic renal sufficiency that is better than his prior numbers in September, he has no significant leukocytosis and does not appear septic clinically, his pressure is high which I think is probably a separate issue, but his urine appears bloody and showing signs of infection/pyuria. Certainly could be colonized but I am going to assume this could be infected, I am sending a urine culture and treating him with IV Rocephin followed by a prescription for Cipro. Initially bladder scan for about 150 mL. Nursing irrigated the suprapubic catheter, it is flowing well, but there is still mild hematuria, no active clots being formed at this time, and none removed with irrigation, and it does not appear to be arterial. His blood counts are relatively stable. I did attempt to discuss with Dr. Zhou but he was not reachable due to the F phone system having issues so the patient will follow-up soon as possible after the weekend. Lab Data Attestation: I reviewed the patient's lab results. Labs: Laboratory Results - last 24 hr 02/29/24 10:01 WBC 5.3 RBC 3.99 L Hgb 12.0 L Hct 36.3 L MCV 91.0 MCH 30.1 MCHC 33.1 RDW Std Deviation 44.1 H RDW Coeff of [place] 13.3 Plt Count 166 MPV 10.8 Immature Gran % (Auto) 0.200 Neut % (Auto) 71.2 H Lymph % (Auto) 18.1 L [place] % (Auto) 9.5 Eos % (Auto) 0.6 Baso % (Auto) 0.4 Absolute Neuts (auto) 3.8 Absolute Lymphs (auto) 0.96 Nucleated RBC % 0 Sodium 141 Potassium 3.4 L Chloride 110 H Carbon Dioxide 24.0 Anion Gap 7 BUN 33 H Creatinine 1.59 H Estim Creat Clear Calc 28.84 Est GFR (MDRD) Af Amer 53 L Est GFR (MDRD) Non-Af 44 L BUN/Creatinine Ratio 20.8 H Glucose 110 H Calcium 9.1 Urine Color Red Urine Clarity Cloudy Urine pH 8.0 Ur Specific [place] 1.010 Urine Protein 500 H Urine Glucose (UA) Normal Urine Ketones 5 H Urine Occult Blood 250 H Urine Nitrite Negative Urine Bilirubin Negative Urine Urobilinogen Normal Ur Leukocyte Esterase 500 H Urine RBC 50-100 SEEN Urine WBC 25-50 SEEN Ur Squamous Epith Cells 0 SEEN Urine Bacteria 1+ Urine Mucus 0 SEEN Management Discussion w/another healthcare provider: Other (attempted to d/w urology, see MDM) Discharge Plan Triage Chief Complaint: Tyler C/O ED Provider: Moody Carrera Dx/Rx/DC Orders Clinical Impression: Hematuria, Complicated UTI (urinary tract infection) Instructions: ED Hematuria, ED Bladder Infection, Male (Adult) Prescriptions: New ciprofloxacin HCl 500 mg tablet 500 mg PO BID Qty: 14 0RF Primary Care Provider: Marian Muller Referrals: Doctor,Your [Non-Staff] - (Call Dr. Zhou's office for appointment to be seen next week as soon as possible) Print Language: Burmese
--- NOTE | 2024-02-29 10:44 | NURSING ---
ATTEMPTED TO REACH DR TOÑA CARUSO, [facility]. PHONES ARE DOWN.
[2024-02-29] MEDS: Ceftriaxone 1 GM/50 ML BAG IV (11:14)
== END 2024-02-29 11:29 | disposition home or self-care (01) ==
LOC: ED 09:51
PROVIDERS: Emergency Provider Emergency Medicine; PCP Internal Medicine; Visit Provider Emergency Medicine
DX: R31.9 Hematuria, unspecified (principal); N39.0 Urinary tract infection, site not specified; I10 Essential (primary) hypertension
CPT/HCPCS: 80048; 81001; 85025; 87077; 87086; 87088; 87186; 96365; 99283; J7050; A4216

== ENCOUNTER 2024-04-12 22:08 | Emergency (ER) | payer MEDICARE, SELFPAY ==
[2024-04-12 22:09] VITALS: BP 236/169; PULSE 98; RESP 20; TEMP 36; O2SAT 99
--- NOTE | 2024-04-12 22:23 | EDS_ITS ---
HPI History of Present Illness Chief Complaint: Complaint Informant: patient and family Narrative Narrative: 88-year-old male states he feels like he has a really full bladder and cannot empty it and is very uncomfortable, started several hours ago. He has a s uprapubic catheter. Has an appointment coming up soon to have it replaced, which will be about 6 weeks since last time it was replaced. He has been there for a long time. Daughter states this happens periodically. They have noticed no hematuria, changes in urine substance or color recently, or prodromal symptoms prior to this. No recent fevers. No pain in his back or nausea/vomiting. Tried to flush it at home but it did not work. Patient takes no anticoagulants. [facility] Medical History Hypertension Suprapubic catheter Home Medications ?Medication ?Instructions ?Recorded ?Last Taken ?Type NK 04/12/24 Unknown History Allergy/AdvReac Type Severity Reaction Status Date / Time latex Allergy Rash Verified 04/12/24 22:08 Surgical History History of suprapubic catheter Social History Smoking Status: Never smoker alcohol intake: never ROS ROS ED Constitutional Constitutional ED: Denies chills or fever(s) Cardiovascular Cardiovascular: Denies chest pain Respiratory/Chest Respiratory/Chest: Denies dyspnea Gastrointestinal Gastrointestinal: Reports abdominal pain; Denies nausea or vomiting Genitourinary Genitourinary ED: Reports as per HPI and difficulty urinating; Denies hematuria Musculoskeletal Musculoskeletal: Denies back pain EXAM Physical Exam Const Vital Signs: 04/12/24 22:09 Temperature 96.8 F L Temperature Source Temporal Pulse Rate 98 Respiratory Rate 20 H Blood Pressure 236/169 H Blood Pressure Mean 191 Pulse Ox 99 Oxygen Delivery Method Room Air Positive well nourished and well developed Constitutional Narrative: Standing with his hands over the bed uncomfortable/in pain General Appearance ED: well developed; Negative for pallor Eyes PERRL and EOMs intact bilaterally Neck supple Resp normal respiratory effort Cardio regular rate and regular rhythm Rate: Negative for tachycardic GI GI Narrative: Suprapubic distention and tenderness, no other abdominal tenderness. Suprapubic catheter site benign without leakage. There is transparent yellow urine within the catheter bag. The catheter itself is opaque. Narrative: nml penis/scrotum to inspection Back/Spine no CVA tenderness Extremity normal to inspection Neuro CN's II-XII intact bilaterally, no focal motor deficits and no sensory deficits noted Psych Mood & Affect: anxious Skin Skin Narrative: Superficial erythematous rash with some scaling that follows the course of the catheter which is taped to his abdominal wall and right proximal thigh/groin. Catheter in place is a 22 Turkish all silicone catheter. General Skin Exam: Negative for jaundice or pallor MDM MDM MDM Narrative Medical decision making narrative: Nursing attempted to irrigate, and they were able to push through the clog and aspirate it as well as some mildly bloody urine. Patient was feeling better. Reevaluation, there is persistent mild hematuria, so I am having nursing irrigate further to see if this resolves. With regards to the patient's urinalysis, there is very little if any pyuria, the other indicators are positive likely related to the fact that he is colonized, so at this time I think infection is less likely but I am sending her for culture to rule that out. We irrigated with a liter total sterile saline. Afterwards the urine that is present is only mildly bloody, it is still transparent and pink. I stood the patient up since he has a suprapubic. There were no other clots or active bleeding or significant extra urine production. They are able to irrigate at home and they are comfortable going home, and comfortable allowing him to go. We did recheck his blood pressure was lower. He is scheduled to follow-up in 3 days for catheter replacement with urology which I think is reasonable to wait for. Lab Data Attestation: I reviewed the patient's lab results. Labs: Laboratory Results - last 24 hr 04/12/24 22:41 Urine Color Red Urine Clarity Turbid Urine pH 8.0 Ur Specific [place] 1.015 Urine Protein 500 H Urine Glucose (UA) Normal Urine Ketones Negative Urine Occult Blood 250 H Urine Nitrite Positive H Urine Bilirubin Negative Urine Urobilinogen Normal Ur Leukocyte Esterase 500 H Urine RBC > 100 SEEN Urine WBC 0-5 SEEN Ur Squamous Epith Cells 0 SEEN Urine Bacteria 3+ Urine Mucus 0 SEEN Discharge Plan Triage Chief Complaint: Complaint ED Provider: Moody Carrera Dx/Rx/DC Orders Clinical Impression: Blocked suprapubic catheter Instructions: ED Tyler Catheter, Care, ED Urinary Retention, Male Prescriptions: No Action NK Primary Care Provider: Marian Muller Referrals: Marian Muller MD [Primary Care Provider] - Pablito Zhou MD [Non-Staff] - Keep Abiodun appointment Print Language: Tamazight Disposition Disposition: Home, Self Care
[2024-04-12 22:45] LABS: Mucous, Urine 0 SEEN /hpf (<or=2+); Squamous Epithelial Cells - UA 0 SEEN /hpf (0-5)
[2024-04-12 22:53] LABS: Color, Urine Red (Yellow); Glucose, Dipstick Normal (Normal); Ketone-Dipstick Negative (Negative); Leukocyte Esterase-Dipstick 500 /ul (Negative); Nitrite-Dipstick Positive (Negative); Occult Blood-Urine 250 /ul (Negative); Protein-Dipstick 500 mg/dl (Negative); Specific Gravity, Urine 1.015 (1.002-1.030); Urine Bilirubin Dipstick Negative (Negative); Urine Clarity Turbid (Clear); Urine Urobilinogen Normal (Normal)
[2024-04-12 22:58] LABS: Bacteria 3+ /hpf (None Seen); Red Blood Cells-Urine > 100 SEEN /hpf (0-5); White Blood Cells 0-5 SEEN /hpf (0-5)
[2024-04-13 00:08] VITALS: BP 190/103
[2024-04-13 00:18] VITALS: BP 181/97; PULSE 67; RESP 16; TEMP 37.2; O2SAT 98
--- NOTE | 2024-04-15 10:17 | ED.RN ---
CALLED AND TALKED WITH PT CAREGIVER AND INFORMED HER A PRESCRIPTION WAS CALLED IN. THEY ARE AWARE AND ALSO KNOW TO F/U WITH DR IN 3-5 DAYS
== END 2024-04-13 00:22 | disposition home or self-care (01) ==
PROVIDERS: Emergency Provider Emergency Medicine; PCP Internal Medicine; Visit Provider Emergency Medicine
DX: T83.098A Other mechanical complication of other urinary catheter, initial encounter (principal); I10 Essential (primary) hypertension; R31.9 Hematuria, unspecified
CPT/HCPCS: 81001; 87077; 87086; 87088; 87186; 99282